=== PATIENT | male | born 2005 | race Caucasian/White ===

== ENCOUNTER 2024-03-02 09:10 | Emergency (ER) | payer SELFPAY ==
[~2024-03-02] VITALS: Ht 170.2 cm; Wt 81.6 kg
[2024-03-02 09:22] VITALS: TEMP 98; O2SAT 100
[2024-03-02] MEDS ORDERED: HYDR28OI2 TP (09:47)
[2024-03-02] MEDS ORDERED: AMOX1TAB16 MT (09:47)
[2024-03-02 10:05] VITALS: BP 109/67; PULSE 61; RESP 16; O2SAT 100
== END 2024-03-02 10:08 | disposition home or self-care (01) ==
LOC: ER 09:10
DX: K62.89 Other specified diseases of anus and rectum (principal)
CPT/HCPCS: 99283

== ENCOUNTER 2025-05-13 13:37 | Emergency (ER) | payer MEDICAID ==
[~2025-05-13] VITALS: Ht 177.8 cm; Wt 78.0 kg
[~2025-05-13 13:37] MED LIST: AMOX1TAB16 MT; HYDR28OI2 TP
[2025-05-13 13:56] VITALS: BP 110/58; TEMP 36.7; O2SAT 99
[2025-05-13 14:02] VITALS: PULSE 77; RESP 14; O2SAT 97
[2025-05-13] MEDS ORDERED: BO1 TP (18:29)
[2025-05-13] MEDS: BACITRACIN ZINC OINT UDPKT TOP ONE (18:39)
== END 2025-05-13 18:47 | disposition home or self-care (01) ==
LOC: ER 13:37
DX: L02.31 Cutaneous abscess of buttock (principal); Z79.899 Other long term (current) drug therapy
CPT/HCPCS: 99282